=== PATIENT | male | born 1990 | race Caucasian/White ===

== ENCOUNTER 2016-12-19 02:06 | Emergency (ER) | payer BC ==
--- NOTE | 2016-12-19 02:08 | EDM.PDOC ---
ED HPI GENERAL MEDICAL PROBLEM - General Stated Complaint: CHEST PAIN, HIGH BLOOD PRESSURE Time Seen by Provider: 12/19/16 02:07 Source of Information: Reports: Patient - History of Present Illness INITIAL COMMENTS - FREE TEXT/NARRATIVE: HISTORY AND PHYSICAL: History of present illness: [] Patient presents with chest pain left sternal border no radiation to arm neck or jaw he rates 4/10 in no distress not associated with diaphoresis or shortness of breath Pain began at 11:00 and as he was operating a piece of equipment, I can reproduce pain with palpation of left pectoris major movement of his left arm No fever nausea vomiting chills sweats no shortness of breath headache dizziness or palpitation no bowel or urine symptoms Review of systems: As per history of present illness and below otherwise all systems reviewed and negative. Past medical history: As per history of present illness and as reviewed below otherwise noncontributory. Surgical history: As per history of present illness and as reviewed below otherwise noncontributory. Social history: No reported history of drug or alcohol abuse. Family history: As per history of present illness and as reviewed below otherwise noncontributory. Physical exam: HEENT: Atraumatic, normocephalic, pupils reactive, negative for conjunctival pallor or scleral icterus, mucous membranes moist, throat clear, neck supple, nontender, trachea midline. Lungs: Clear to auscultation, breath sounds equal bilaterally, chest nontender. Heart: S1S2, regular, negative for clicks, rubs, or JVD. Abdomen: Soft, nondistended, nontender. Negative for masses or hepatosplenomegaly. Negative for costovertebral tenderness. Pelvis: Stable nontender. Genitourinary: Deferred. Rectal: Deferred. Extremities: Atraumatic, negative for cords or calf pain. Neurovascular unremarkable. Neuro: Awake, alert, oriented. Cranial nerves II through XII unremarkable. Cerebellum unremarkable. Motor and sensory unremarkable throughout. Exam nonfocal. Diagnostics: [] Lab as below EKG Chest one view Therapeutics: [] Aspirin 324 mg chewable 1 L normal saline bolus Impression: Muscle spasm [] Worried well Anxiety about health Definitive disposition and diagnosis as appropriate pending reevaluation and review of above. Anterior Chest Pain Score (Numeric/FACES): 4 - Related Data Allergies Allergy/AdvReac Type Severity Reaction Status Date / Time No Known Allergies Allergy Verified 12/19/16 02:11 Home Meds: Home Meds . [No Known Home Meds] 12/19/16 [History] ED ROS GENERAL - Review of Systems Review Of Systems: ROS reveals no pertinent complaints other than HPI. ED EXAM, GENERAL - Physical Exam Exam: See Below Course - Vital Signs Last Recorded V/S: Last Vital Signs Temp 36.6 C 12/19/16 02:12 Pulse 74 12/19/16 02:12 Resp 16 12/19/16 02:12 BP 144/80 H 12/19/16 02:12 Pulse Ox 99 12/19/16 02:12 - Orders/Labs/Meds Orders: Active Orders 24 hr Category Date Time Status EKG Documentation Completion [RC] STAT Care 12/19/16 02:09 Active Chest 1V Frontal [CR] Stat Exams 12/19/16 02:09 Taken UA W/MICROSCOPIC [URIN] Stat Lab 12/19/16 02:09 Uncollected Sodium Chloride 0.9% [Normal Saline] 1,000 ml Med 12/19/16 02:09 Active IV STAT Medication Orders Sodium Chloride (Normal Saline) 1,000 mls @ 999 mls/hr IV STAT ONE Stop: 12/19/16 03:09 Last Admin: 12/19/16 02:30 Dose: 999 mls/hr Labs: Laboratory Tests 12/19/16 12/19/16 12/19/16 Range/Units 02:23 02:23 02:23 WBC 7.80 (4.0-11.0) K/uL RBC 4.71 (4.50-5.90) M/uL Hgb 14.0 (13.0-17.0) g/dL Hct 41.6 (38.0-50.0) % MCV 88.3 (80.0-98.0) fL MCH 29.7 (27.0-32.0) pg MCHC 33.7 (31.0-37.0) g/dL RDW Std Deviation 41.0 (28.0-62.0) fl RDW Coeff of Harjeet 13 (11.0-15.0) % Plt Count 199 (150-400) K/uL MPV 9.60 (7.40-12.00) fL Neut % (Auto) 58.2 (48.0-80.0) % Lymph % (Auto) 34.5 (16.0-40.0) % [place] % (Auto) 6.4 (0.0-15.0) % Eos % (Auto) 0.6 (0.0-7.0) % Baso % (Auto) 0.3 (0.0-1.5) % Neut # (Auto) 4.5 (1.4-5.7) K/uL Lymph # (Auto) 2.7 H (0.6-2.4) K/uL [place] # (Auto) 0.5 (0.0-0.8) K/uL Eos # (Auto) 0.1 (0.0-0.7) K/uL Baso # (Auto) 0.0 (0.0-0.1) K/uL Nucleated RBC % 0.0 /100WBC Nucleated RBCs # 0 K/uL Sodium 140 (136-146) mmol/L Potassium 4.2 (3.5-5.1) mmol/L Chloride 105 (98-110) mmol/L Carbon Dioxide 23 (21-31) mmol/L BUN 20 (6.0-23.0) mg/dL Creatinine 1.0 (0.6-1.5) mg/dL Est Cr Clr Drug Dosing 120.71 mL/min Estimated GFR (MDRD) > 60.0 ml/min Glucose 92 (60-110) mg/dL Calcium 10.2 (8.8-10.8) mg/dL Total Bilirubin 0.5 (0.1-1.5) mg/dL AST 20 (5-40) IU/L ALT 27 (8-54) IU/L Alkaline Phosphatase 49 (40-150) Troponin I < 0.10 (0.0-0.29) NG/ML Total Protein 7.6 (6.0-8.0) g/dL Albumin 4.7 (3.5-5.0) g/dL Globulin 2.9 (2.0-3.5) g/dL Albumin/Globulin Ratio 1.6 (1.3-2.8) Amylase 42 (10-90) U/L Lipase 14 (7-80) U/L Meds: Medications Generic Name Dose Route Start Last Admin Trade Name Freq PRN Reason Stop Dose Admin Sodium Chloride 1,000 mls @ 999 mls/hr 12/19/16 02:09 12/19/16 02:30 Normal Saline IV 12/19/16 03:09 999 mls/hr STAT ONE Administration Discontinued Medications Generic Name Dose Route Start Last Admin Trade Name Jason PRN Reason Stop Dose Admin Aspirin 324 mg 12/19/16 02:09 12/19/16 02:30 Aspirin PO 12/19/16 02:10 324 mg ONETIME ONE Administration Departure - Departure Time of Disposition: 03:05 Disposition: Home, Self-Care 01 Condition: good Clinical Impression: Muscle spasm - Discharge Information Referrals: PCP,None [Primary Care Provider] - Additional Instructions: Return if symptoms persist or worsen or new concerning symptoms develop Ibuprofen may benefit 400 mg 3 times daily 7-10 days Followup with primary care in 2 weeks [facility] - Primary Care [address] [place] [id number] The following information is given to patients seen in the emergency department who are being discharged to home. This information is to outline your options for follow-up care. We provide all patients seen in our emergency department with a follow-up referral. The need for follow-up, as well as the timing and circumstances, are variable depending upon the specifics of your emergency department visit. If you don't have a primary care physician on staff, we will provide you with a referral. We always advise you to contact your personal physician following an emergency department visit to inform them of the circumstance of the visit and for follow-up with them and/or the need for any referrals to a consulting specialist. The emergency department will also refer you to a specialist when appropriate. This referral assures that you have the opportunity for follow-up care with a specialist. All of these measure are taken in an effort to provide you with optimal care, which includes your follow-up. Under all circumstances we always encourage you to contact your private physician who remains a resource for coordinating your care. When calling for follow-up care, please make the office aware that this follow-up is from your recent emergency room visit. If for any reason you are refused follow-up, please contact the [facility] emergency department at and asked to speak to the emergency department charge nurse. - My Orders Last 24 Hours: My Active Orders 12/19/16 02:09 EKG Documentation Completion [RC] STAT Chest 1V Frontal [CR] Stat UA W/MICROSCOPIC [URIN] Stat Sodium Chloride 0.9% [Normal Saline] 1,000 ml IV STAT - Assessment/Plan Last 24 Hours: My Active Orders 12/19/16 02:09 EKG Documentation Completion [RC] STAT Chest 1V Frontal [CR] Stat UA W/MICROSCOPIC [URIN] Stat Sodium Chloride 0.9% [Normal Saline] 1,000 ml IV STAT
[2016-12-19] MEDS ORDERED: Sodium Chloride 0.9% 1,000 ML IV ONE (02:09)
[2016-12-19] MEDS ORDERED: Aspirin 81 MG Tab.Chew PO ONE (02:09)
[2016-12-19 02:53] LABS: CHLORIDE,CL 105 mmol/L (98-110); SODIUM,NA 140 mmol/L (136-146)
[2016-12-19 03:11] VITALS: BP 114/68
--- NOTE | 2016-12-20 13:47 | CR ---
EXAM DATE: 12/19/16 PATIENT'S AGE: 26 Patient: JENNIFER GOEL Facility: [place], [place] Site . Site : 1990 Study: XRay Chest [id number]/29/2017 2:33:37 AM Ordering Physician: Madhuri Richards Final Report: INDICATION: Chest pain. TECHNIQUE: Chest 1 view. COMPARISON: None FINDINGS: No pneumothorax or pleural effusion. Lungs are clear. Cardiac and mediastinal contours are within normal limits. Upper abdomen and osseous structures as imaged show no acute abnormality. IMPRESSION: No acute cardiopulmonary disease. Dictated by: Robel Luna MD @ 12/19/2016 02:40:52 (Electronic Signature) Report Signed by Proxy. [facility]
== END 2016-12-19 03:15 | disposition home or self-care (01) ==
LOC: MW.ED 02:06
DX: M62.838 Other muscle spasm (principal); F41.8 Other specified anxiety disorders
CPT/HCPCS: 71010; 80053; 82150; 83690; 84484; 85025; 93005; 96360; 99285; A9270; J7040; 99283

== ENCOUNTER 2018-08-28 08:25 | Emergency (ER) | payer BC, OTHER ==
--- NOTE | 2018-08-28 08:42 | EDM.PDOC ---
ED HPI GENERAL MEDICAL PROBLEM - General Chief Complaint: Upper Extremity Injury/Pain Stated Complaint: left hand pain Time Seen by Provider: 08/28/18 08:26 - History of Present Illness INITIAL COMMENTS - FREE TEXT/NARRATIVE: HISTORY AND PHYSICAL: History of present illness: The patient is a healthy 27-year-old male who was in his usual state of good health with no systemic complaints when he slipped on the ice while trying to go home after work and landed with his hands forward injuring his left hand. He did not hit his head pass out or black out and has no lower extremity complaints and no right upper extremity complaints but only complains of pain to the volar surface of the left hand near the base of the thumb. He says his wrist forearm elbow and shoulder on the left side are without tenderness or pain has no neurosensory changes in the distal hand. With movement of the thumb he feels discomfort and he has noticed a lot of swelling at the base of the thumb on the palmar surface. He did not take anything for pain prior to coming here Review of systems: As per history of present illness and below otherwise all systems reviewed and negative. Past medical history: As per history of present illness and as reviewed below otherwise noncontributory. Surgical history: As per history of present illness and as reviewed below otherwise noncontributory. Social history: No reported history of drug or alcohol abuse. Family history: As per history of present illness and as reviewed below otherwise noncontributory. Physical exam: General: Well-developed well-nourished man who is nontoxic and mildly overweight. Vital signs are noted by me and the patient ambulated into the ED without distress HEENT: Atraumatic, normocephalic, , negative for conjunctival pallor or scleral icterus, mucous membranes moist, throat clear, neck supple, nontender, trachea midline. There is no scalp tenderness and no tenderness defects or deformities of the cervical spine Lungs: Clear to auscultation, breath sounds equal bilaterally, chest nontender. Heart: S1S2, regular rate and rhythm no overt murmurs Abdomen: Deferred. Pelvis: Deferred r. Genitourinary: Deferred. Rectal: Deferred. Extremities: Atraumatic, with full range of motion of all extremities with the exception of the palmar surface of the left thumb. At the left hand on the palmar surface there is swelling and tenderness to palpation of the thenar eminence but the patient can oppose flex and extend at the finger. The remainder of the digits are without tenderness defects or deformities and the thumb itself also has no soft tissue swelling defects tenderness or deformities. The dorsal aspect of the hand is without swelling or tenderness in the proximal wrist forearm radial head elbow and shoulder are all intact without tenderness defects or deformities. Neurovascular unremarkable. Neuro: Awake, alert, oriented. Cranial nerves II through XII unremarkable. Cerebellum unremarkable. Motor and sensory unremarkable throughout. Exam nonfocal. Diagnostics: X-ray left hand Therapeutics: Patient declined pain medications, Bandar wrap offered to patient Impression: Fall with left hand injury/contusion Definitive disposition and diagnosis as appropriate pending reevaluation and review of above. Left Finger-Thumb Pain Score (Numeric/FACES): 5 - Related Data Allergies Allergy/AdvReac Type Severity Reaction Status Date / Time No Known Allergies Allergy Verified 08/28/18 08:40 Home Meds: Home Meds . [No Known Home Meds] 12/19/16 [History] Past Medical History HEENT History: Reports: None Cardiovascular History: Reports: None Respiratory History: Reports: None - Infectious Disease History Infectious Disease History: Reports: Chicken Pox - Past Surgical History HEENT Surgical History: Reports: None Cardiovascular Surgical History: Reports: None Musculoskeletal Surgical History: Reports: Other (See Below) Other Musculoskeletal Surgeries/Procedures:: left hand surgery Review of Systems - Review of Systems Review Of Systems: ROS reveals no pertinent complaints other than HPI. ED EXAM, GENERAL - Physical Exam Exam: See Below (See dictation) Course - Vital Signs Last Recorded V/S: Last Vital Signs Temp 35.8 C 08/28/18 08:37 Pulse 74 08/28/18 08:37 Resp 18 08/28/18 08:37 BP 131/87 08/28/18 08:37 Pulse Ox 95 08/28/18 08:37 Departure - Departure Time of Disposition: 09:34 Disposition: Home, Self-Care 01 Condition: Good Clinical Impression: Injury of left hand Qualifiers: Encounter type: initial encounter Qualified Code(s): S69.92XA - Unspecified injury of left wrist, hand and finger(s), initial encounter Hand contusion Qualifiers: Encounter type: initial encounter Laterality: left Qualified Code(s): S60.222A - Contusion of left hand, initial encounter - Discharge Information Referrals: PCP,None [Primary Care Provider] - Forms: ED Department Discharge Additional Instructions: The following information is given to patients seen in the emergency department who are being discharged to home. This information is to outline your options for follow-up care. We provide all patients seen in our emergency department with a follow-up referral. The need for follow-up, as well as the timing and circumstances, are variable depending upon the specifics of your emergency department visit. If you don't have a primary care physician on staff, we will provide you with a referral. We always advise you to contact your personal physician following an emergency department visit to inform them of the circumstance of the visit and for follow-up with them and/or the need for any referrals to a consulting specialist. The emergency department will also refer you to a specialist when appropriate. This referral assures that you have the opportunity for followup care with a specialist. All of these measure are taken in an effort to provide you with optimal care, which includes your followup. Under all circumstances we always encourage you to contact your private physician who remains a resource for coordinating your care. When calling for followup care, please make the office aware that this follow-up is from your recent emergency room visit. If for any reason you are refused follow-up, please contact the [facility] emergency department at and ask to speak to the emergency department charge nurse. [facility]-Plastic Surgery and Hand Surgery Professional [address] [address] Use [id number] medications such as ibuprofen/Motrin or Tylenol for pain and ice the area to reduce the swelling. Do all activities with your left hand slowly so as to avoid reinjuring and call and schedule a follow-up appointment with our hand specialist using resources given to above for follow-up care. Return to ER as needed and as discussed
--- NOTE | 2018-08-28 09:33 | CR ---
EXAMINATION: Left hand HISTORY: Trauma COMPARISON: 03/13/2012 TECHNIQUE: 3 views FINDINGS/IMPRESSION: There is no acute osseous abnormality, dislocation, or fracture. Bone mineralization and joint spaces are preserved. Radiocarpal alignment is normal.
[2018-08-28 09:57] VITALS: BP 138/93
== END 2018-08-28 09:41 | disposition home or self-care (01) ==
LOC: MW.ED 08:25
DX: S60.222A Contusion of left hand, initial encounter (principal); W00.0XXA Fall on same level due to ice and snow, initial encounter
CPT/HCPCS: 73130-26-LT; 73130-LT; 99283